=== PATIENT | female | born 1960 | race Two or more races ===

== ENCOUNTER 2018-03-12 19:35 | Emergency (ER) | payer BC ==
[~2018-03-12] VITALS: Ht 162.6 cm; Wt 73.0 kg
[2018-03-12] MEDS ORDERED: ACETAMINOPHEN 325MG TABLET PO STA (20:15)
[2018-03-12] MEDS ORDERED: IBUPROFEN 600MG TABLET PO STA (20:15)
[2018-03-12] MEDS ORDERED: SODIUM CHLORIDE 0.9% 1000ML BAG (SEPSIS BOLUS) IV ONE (20:15)
[2018-03-12 21:19] LABS: CLARITY URINE CLOUDY (CLEAR); COLOR URINE YELLOW (YELLOW); KETONES URINE 2+ (NEGATIVE); LEUKOCYTE ESTERASE URINE 2+ (NEGATIVE); NITRITE URINE NEGATIVE (NEGATIVE); OCCULT BLOOD URINE NEGATIVE (NEGATIVE); PROTEIN URINE TRACE (NEGATIVE); SPECIFIC GRAVITY URINE 1.024 (1.005-1.030); UROBILINOGEN URINE 0.2 E.U./dL (0.2-1.0)
[2018-03-12 21:33] LABS: *AMPHETAMINES SCREEN URINE NEGATIVE (NEGATIVE); *BENZODIAZEPINES SCREEN URINE NEGATIVE (NEGATIVE); *COCAINE SCREEN URINE NEGATIVE (NEGATIVE); METHADONE URINE SCREEN NEGATIVE (NEGATIVE); OPIATES URINE SCREEN NEGATIVE (NEGATIVE)
[2018-03-12 21:34] LABS: *BARBITURATES SCREEN URINE NEGATIVE (NEGATIVE); CANNABINOID URINE SCREEN NEGATIVE (NEGATIVE); PHENCYCLIDINE URINE SCREEN NEGATIVE (NEGATIVE)
[2018-03-12 21:56] LABS: CHLORIDE 105 mEq/L (98-107); HEMATOCRIT. 33.6 % (36.0-48.0); HEMOGLOBIN. 11.3 g/dL (12.0-16.0); MEAN CORPUSCULAR HEMOGLOBIN 29.2 pg (28.0-32.0); MEAN CORPUSCULAR VOLUME 86.9 fL (81.0-99.0); MEAN PLATELET VOLUME 7.3 fl (7.4-10.4); PLATELET 225 x1000/uL (130-400); RED BLOOD CELL COUNT 3.87 mill/uL (4.2-5.4); RED CELL DISTRIBUTION WIDTH 13.1 % (11.6-14.6)
[2018-03-12 21:58] LABS: INR 1.1; PROTHROMBIN TIME 11.3 sec (9.1-11.1)
[2018-03-12 21:59] LABS: ETHANOL BLOOD < 10 mg/dL
[2018-03-12 22:07] LABS: CREATINE KINASE 135 IU/L (26-192)
[2018-03-12 22:34] LABS: PLATELET ESTIMATE NORMAL
[2018-03-12] MEDS ORDERED: AMOXICILLIN/POTASSIUM CLAVULANATE 875/125MG TAB PO ONE (23:45)
[2018-03-12] MEDS ORDERED: ACETAMINOPHEN WITH CODEINE 300/30MG TABLET PO ONE (23:45)
[2018-03-13 01:24] VITALS: BP 110/64
== END 2018-03-13 01:39 | disposition home or self-care (01) ==
LOC: ER 19:35 → CANBEDREQ 03-13 04:24
DX: N39.0 Urinary tract infection, site not specified (principal); R00.0 Tachycardia, unspecified; J40 Bronchitis, not specified as acute or chronic; B34.9 Viral infection, unspecified; E11.9 Type 2 diabetes mellitus without complications
CPT/HCPCS: 36415; 71045; 80053; 80305; 81003; 82550; 83605; 83880; 84145; 84484; 85025; 85610; 87040; 87086; 87804; 93005; 96360; 96361; 99284; G0482; J7030